=== PATIENT | female | born 1960 ===

== ENCOUNTER 2016-07-31 08:12 | Emergency (ER) | payer OTHER ==
[~2016-07-31] VITALS: Ht 157.5 cm; Wt 72.6 kg
[~2016-07-31 08:12] MED LIST: AFRIN PUMPMIST15 ML NASB; ALBUTEROL1.25 MG/1 INH/SOL; AZITHROMYCIN250 M1 PO; B COMPLEX1 SGL PO; BIOTIN5 MG PO; BUPROPION HCL75 M1 PO; FLEXERIL10 MG PO; IBU800 MG PO; IBUPROFEN600 M1 PO; IMITREX50 MG PO; LEVAQUIN500 M1 PO; MASON NATURAL2000 IU PO; NATURAL IRON65 MG PO; PROVENTIL HFA6.7 GM INH; TESSALON PERLE100 M1 PO; TESSALON PERLE100 MG PO; VENTOLIN HFA18 GM INH; [UNRECOGNIZED DRUG - OTHER] PO
[2016-07-31 08:21] VITALS: BP 110/60
--- NOTE | 2016-07-31 08:36 | ED EYE COMPLAINT ---
History of Present Illness General Chief Complaint: Eye Problems Stated Complaint: LEFT EYE PAIN Source: patient, old records Exam Limitations: no limitations Vital Signs & Intake/Output Vital Signs & Intake/Output Vital Signs Date Time Temp Pulse Resp B/P B/P Pulse O2 O2 Flow FiO2 Mean Ox Delivery Rate 07/31 0821 96.5 74 20 110/60 99 Room Air Allergies Coded Allergies: azithromycin (From ZITHROMAX) (SORES 12/16/15) Reconcile Medications Albuterol Sulfate (Proventil Hfa) 6.7 GM HFA.AER.AD 2 PUF INH Q4 PRN cough/ wheeze Albuterol Sulfate (Ventolin Hfa) 18 GM HFA.AER.AD 2 PUF INH Q4-6 PRN PRN wheeze/cough Benzonatate (Tessalon Perle) 100 MG CAPSULE 1-2 CAP PO TID PRN cough Biotin (Unknown Strength) TAB (Unknown Dose) PO DAILY SUPPLEMENT (Reported) BUPROPION HCL (Bupropion HCl) 75 MG TAB 1 TAB PO DAILY MENTAL HEALTH ( Reported) CHOLECALCIFEROL (VITAMIN D3) (Vitamin D) (Unknown Strength) SGL (Unknown Dose) PO DAILY SUPPLEMENT (Reported) FERROUS SULFATE (IRON) 65 MG TAB 1 TAB PO DAILY SUPPLEMENT (Reported) Naphazoline HCl/Pheniramine (Naphcon-A Eye Drops) 0.025 %-0.3 % DROPS 1 DROP OS Q6 PRN EYE IRRITATION Triage Note: PT TO ED C/O LEFT EYE PAIN AND BURNING SINCE YESTERDAY. PT TO ROOM 7, AWAITING EVAL. Triage Nurses Notes Reviewed? yes HPI: Patient presents for evaluation of constant left eye itching that began gradually 4 days ago. Patient has had similar episodes seasonally due to pollen. Patient's symptoms persist despite the use of Pataday. She is having worsening itching and burning in the eyes at causing her to rub them. Nothing seems to make her symptoms better at this point. Patient is also having clear discharge and crusting of the eye with an associated seasonal rhinorrhea. Patient denies any fever, cold symptoms, visual disturbances or known ill contacts. Past History Travel History Traveled to [place] past 21 day No Medical History Any Pertinent Medical History? 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 No Review of Systems Review of Systems Constitutional: Reports: no symptoms, see HPI. Eyes: Reports: see HPI. Ear: Reports: no symptoms. Nose: Reports: no symptoms. Mouth: Reports: no symptoms. Throat: Reports: no symptoms. Respiratory: Reports: no symptoms. Cardiovascular: Reports: no symptoms. GI: Reports: no symptoms. Genitourinary: Reports: no symptoms. Musculoskeletal: Reports: no symptoms. Skin: Reports: no symptoms. Neurological/Psychological: Reports: no symptoms. Hematologic/Endocrine: Reports: no symptoms. Immunologic/Allergic: Reports: no symptoms. All Other Systems: Reviewed and Negative Physical Exam General Appearance: well developed/nourished, mild distress General Inspection: SEE BELOW Eyelid: normal inspection Conjunctiva/Sclera: injected Cornea: normal inspection EOM: intact Pupil: normal accommodation General Inspection: normal inspection Physical Exam Head: normal appearance Nose: normal inspection Mouth/Throat: normal mouth inspection Neck: normal inspection, supple Cardiovascular/Respiratory: no respiratory distress Neurologic/Psych: awake, alert, normal mood/affect Skin: warm/dry Progress Differential Diagnosis: corneal abrasion, corneal foreign body, conjunctivitis Plan of Care: SEE D/C Departure Departure Disposition: HOME OR SELF CARE Condition: Stable Clinical Impression Primary Impression: Allergic conjunctivitis Qualifiers: Laterality: left Qualified Code: H10.12 - Acute atopic conjunctivitis, left eye Referrals: MARY STERLING APRN (PCP/Family) Additional Instructions: Continue your current medication and add Naphcon as needed. Consider Zyrtec, Claritin or other miuv-hlf-zifsuol allergy medication. Cool compresses as needed. Follow-up with your primary care doctor on Thursday for reevaluation. Return if any concerns or sudden worsening. Thank you for choosing the [facility] for your care. It was a pleasure to serve you today. Tolu Duran M.D. [facility] Departure Forms: Customer Survey General Discharge Information Prescriptions: Current Visit Scripts Naphazoline HCl/Pheniramine (Naphcon-A Eye Drops) 1 DROP OS Q6 PRN EYE IRRITATION #1 VIAL
[2016-07-31] MEDS ORDERED: NAPHCON-A EYE D15 ML OS (08:49)
== END 2016-07-31 08:59 ==
LOC: ERH 08:12
DX: H10.12 Acute atopic conjunctivitis, left eye (principal)

== ENCOUNTER 2016-08-04 16:04 | Emergency (ER) | payer OTHER ==
[~2016-08-04] VITALS: Ht 157.5 cm; Wt 72.6 kg
[~2016-08-04 16:04] MED LIST changes: +NAPHCON-A EYE D15 ML OS
[2016-08-04 16:10] VITALS: BP 125/81
--- NOTE | 2016-08-04 17:30 | ED SKIN/ALLERGY COMPLAINT ---
History of Present Illness General Chief Complaint: Animal/Insect Bite Stated Complaint: SPIDER BITE? Source: patient Exam Limitations: no limitations Vital Signs & Intake/Output Vital Signs & Intake/Output Vital Signs Date Time Temp Pulse Resp B/P B/P Pulse O2 O2 Flow FiO2 Mean Ox Delivery Rate 08/04 1610 97.7 93 16 125/81 97 Room Air Allergies Coded Allergies: azithromycin (From ZITHROMAX) (SORES 12/16/15) Triage Note: PT STATES SHE THINKS SHE WAS BIT BY 2 SPIDERS ABOUT 2 WEEKS AGO. PT REPORTS BRINING HOME EGG BOXES AND STATES SHE SAW TINY BLACK SPIDERS WITH WHITE STRIPES IN THE BOTTOMOF THE CONTAINER. PT GETTING LITTLE BLISTERS ON HER FACE AND NECK. PT C/O FEELING ITCHY AND HAS NUMBNESS IN HER LEFT HAND. Triage Nurses Notes Reviewed? yes Onset: Gradual Duration: constant Timing: recent history Severity: moderate Severity Numbers: 5 Location: face No Modifying Factors: none HPI: Patient is a 56-year-old female who presents emergent with a ten-day history of believing that she was bit by spiders where she was in the process of packing boxes where a box fell and spiders had scattered in her house where she noted a few days later skin irritation to the left side of her face and the neck region where she's been complaining of skin irritation and pruritus where she has only taken [id number] antibiotic cream with no relief of symptoms. Patient was evaluated at [place] emergency room 4 days ago for concerns of left eye allergic conjunctivitis in which she states that she's been feeling better Patient denies any fevers chills sore throat cough or skin erythema discharge or warmth. (RAGHU LEDESMA) Reconcile Medications Bupropion HCl 75 MG TABLET 1 TAB PO DAILY MENTAL HEALTH (Reported) Doxycycline Hyclate 100 MG CAPSULE 1 CAP PO BID DERMATITIS Famotidine (Pepcid) 20 MG TABLET 1 TAB PO BID ALLERGIC REACTION Hydrocortisone 2.5 % CREAM..G. 1 ARCENIO TOP BID INFLAMMATION apply to affected area(s) Methylprednisolone. (Medrol) 4 MG TAB.DS.PK 1 DP PO AD INFLAMMATION 6 on day 1 then reduce by one tablet daily until gone Multivitamin With Minerals (Hair, Skin & Nails) 1 EACH TABLET 1 TAB PO DAILY SUPPLEMENT (Reported) Naphazoline HCl/Pheniramine (Naphcon-A Eye Drops) 0.025 %-0.3 % DROPS 1 DROP OS Q6 PRN EYE IRRITATION (AMADOR CHEO VALENCIA) Past History Travel History Traveled to [place] past 21 day No Medical History Any Pertinent Medical History? 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 No (RAGHU LEDESMA) Review of Systems Review of Systems Constitutional: Reports: no symptoms. EENTM: Reports: no symptoms. Respiratory: Reports: no symptoms. Cardiovascular: Reports: no symptoms. GI: Reports: no symptoms. Genitourinary: Reports: no symptoms. Musculoskeletal: Reports: no symptoms. Skin: Reports: see HPI. Neurological/Psychological: Reports: no symptoms. Hematologic/Endocrine: Reports: no symptoms. Immunologic/Allergic: Reports: no symptoms. All Other Systems: Reviewed and Negative (RAGHU LEDESMA) Physical Exam Physical Exam General Appearance: no apparent distress, alert, comfortable Head: atraumatic Comments: Well-developed well-nourished person in no acute distress HEENT: Normal EENT exam, extraocular motion intact, no nystagmus. Pupils equally round and reactive to light and accommodation. Nose is atraumatic. External auditory canal and Tympanic membranes clear. Pharynx normal. No swelling or edema. Neck: Supple, no lymphadenopathy, normal range of motion without pain or tenderness Back: Nontender, no CVA tenderness. Cardiovascular: Regular rate and rhythms no murmurs rubs or gallops, normal JVP Respiratory: Chest nontender. No respiratory distress.breath sounds clear to auscultation bilaterally Abdomen: Soft, nontender nondistended, no appreciable organomegaly. Normal bowel sounds. No ascites Extremity: No edema, no calf tenderness to palpation, normal and equal pulses. Neuro: Alert oriented x3, motor sensory normal, Psych: Mood and affect is normal, memory and judgment is normal. Diagram Head: 1) Mild swelling noted no erythema no warmth minimal 1 mm dark circular papules noted X #2 2) Mild swelling and X#1, 3 mm circular dark papule noted (RAGHU LEDESMA) Progress Differential Diagnosis: abscess/cellulitis, allergic reaction, anaphylaxis, angioedema, contact dermatitis, drug reaction, erythema multiforme, lyme disease , meningitis/sepsis, piyriasis rosea, urticaria Plan of Care: No signs of cellulitis or abscess at this time patient does not complain of systemic symptoms of infection. Patient will be treated for concerns of dermatitis and nonspecific rash (RAGHU LEDESMA) Departure Departure Disposition: HOME OR SELF CARE Condition: Stable Clinical Impression Primary Impression: Dermatitis Referrals: MARY STERLING APRN (PCP/Family) Additional Instructions: As discussed in the prescription and doxycycline as directed for the full course , begin the prescription of Medrol Dosepak, HYDROCORTISONE cream and Pepcid as directed for symptoms. Begin at night Benadryl for your itching sensation. If no better in 4 days follow-up with primary care doctor. If symptoms worsen return to emergency room. Prescription is waiting at [facility] Departure Forms: Customer Survey General Discharge Information Prescriptions: Current Visit Scripts Doxycycline Hyclate 1 CAP PO BID #14 CAP Methylprednisolone. (Medrol) 1 DP PO AD #1 DP 6 on day 1 then reduce by one tablet daily until gone Hydrocortisone 1 ARCENIO TOP BID #60 GM apply to affected area(s) Famotidine (Pepcid) 1 TAB PO BID #8 TAB (RAGHU LEDESMA) PA/RAW SCALES OPERATOR Co-Sign Statement Statement: ED Attending supervision documentation- [] I saw and evaluated the patient. I have also reviewed all the pertinent lab results and diagnostic results. I agree with the findings and the plan of care as documented in the PA's/RAW SCALES OPERATOR's documentation. [x] I have reviewed the ED Record and agree with the PA's/RAW SCALES OPERATOR's documentation. [] Additions or exceptions (if any) to the PAs/RAW SCALES OPERATOR's note and plan are summarized below: [] (CHEO ENGLISH DO
[2016-08-04] MEDS ORDERED: MEDROL4 M2 PO (17:43)
[2016-08-04] MEDS ORDERED: DOXYCYCLINE HY100 M2 PO (17:43)
[2016-08-04] MEDS ORDERED: PEPCID20 M1 PO (17:43)
[2016-08-04] MEDS ORDERED: HYDROCORTISO453.6 G2 TOP (17:43)
[2016-08-04] MEDS ORDERED: HAIR, SKIN & N1 EACH PO (17:52)
== END 2016-08-04 18:00 ==
LOC: ERH 16:04
DX: L30.9 Dermatitis, unspecified (principal)

== ENCOUNTER 2016-08-15 22:42 | Emergency (ER) | payer OTHER ==
[~2016-08-15] VITALS: Ht 157.5 cm; Wt 63.5 kg
[~2016-08-15 22:42] MED LIST changes: +DOXYCYCLINE HY100 M2 PO; +HAIR, SKIN & N1 EACH PO; +HYDROCORTISO453.6 G2 TOP; +MEDROL4 M2 PO; +PEPCID20 M1 PO
[2016-08-15 22:46] VITALS: BP 115/79
--- NOTE | 2016-08-15 23:49 | ED SKIN/ALLERGY COMPLAINT ---
History of Present Illness General Chief Complaint: Animal/Insect Bite Stated Complaint: SPIDER BITE TO NECK, RE-EVAL SEEN OVER 1 WEEK AGO Source: patient Exam Limitations: no limitations Vital Signs & Intake/Output Vital Signs & Intake/Output Vital Signs Date Time Temp Pulse Resp B/P B/P Pulse O2 O2 Flow FiO2 Mean Ox Delivery Rate 08/15 2246 97.1 62 16 115/79 98 Room Air ED Intake and Output 08/16 0000 08/15 1200 Intake Total Output Total Balance Patient 140 lb Weight Weight Reported by Patient Measurement Method Allergies Coded Allergies: azithromycin (From ZITHROMAX) (SORES 12/16/15) diphenhydramine (From BENADRYL) ("DONT LIKE THE EFFECTS" 08/15/16) Reconcile Medications Bupropion HCl 75 MG TABLET 1 TAB PO DAILY MENTAL HEALTH (Reported) Doxycycline Hyclate 100 MG CAPSULE 1 CAP PO BID DERMATITIS Famotidine (Pepcid) 20 MG TABLET 1 TAB PO BID ALLERGIC REACTION Famotidine (Pepcid) 20 MG TABLET 1 TAB PO DAILY ALLERGIC REACTION Hydrocortisone 2.5 % CREAM..G. 1 ARCENIO TOP BID INFLAMMATION apply to affected area(s) Methylprednisolone. (Medrol) 4 MG TAB.DS.PK 1 DP PO AD INFLAMMATION 6 on day 1 then reduce by one tablet daily until gone Methylprednisolone. (Medrol) 4 MG TAB.DS.PK 1 DP PO AD ALLERGIC REACTION 6 on day 1 then reduce by one tablet daily until gone Multivitamin With Minerals (Hair, Skin & Nails) 1 EACH TABLET 1 TAB PO DAILY SUPPLEMENT (Reported) Naphazoline HCl/Pheniramine (Naphcon-A Eye Drops) 0.025 %-0.3 % DROPS 1 DROP OS Q6 PRN EYE IRRITATION Olopatadine HCl (Pataday) 0.2 % DROPS 1 GTT OPH DAILY ALLERGIES Triage Note: PT TO ED FOR "WORSENING ITCHING AFTER SPIDER BITE 1 WEEK AGO" WAS SEEN FOR BITE INITIALLY 1 WEEK AGO AND PRESCRIBED, PREDNISONE, DOXYCYCLINE, EYE DROPS "AND ONE OTHER MEDICATOIN" ITCHING IMPROVED BUT PT REPORTS WHEN PREDNISONE RX FINISHED ITCHING RETURNED. Triage Nurses Notes Reviewed? yes Onset: Gradual Duration: constant Severity: moderate Severity Numbers: 5 Location: torso Possible Factors: no cause identified HPI: Patient is a 56-year-old female who presents emergency room stating that she has exacerbation last 3-4 days of right-sided neck skin irritation and burning sensation and significant itching. Patient was evaluated and treated by me approximately 2 weeks ago for similar complaints in which she thought she was bitten by spiders and when she was administered prednisone doxycycline and hydrocortisone cream with complete resolution of symptoms. Patient again denies any ideology or specific allergens Denies any shortness of breath, swelling lip swelling difficulty breathing or swallowing. Patient still has been applying the hydrocortisone cream (RAGHU LEDESMA) Past History Travel History Traveled to [place] past 21 day No Medical History Any Pertinent Medical History? 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 No (RAGHU LEDESMA) Review of Systems Review of Systems Constitutional: Reports: no symptoms. EENTM: Reports: no symptoms. Respiratory: Reports: no symptoms. Cardiovascular: Reports: no symptoms. GI: Reports: no symptoms. Genitourinary: Reports: no symptoms. Musculoskeletal: Reports: no symptoms. Skin: Reports: see HPI, rash. Neurological/Psychological: Reports: no symptoms. Hematologic/Endocrine: Reports: no symptoms. Immunologic/Allergic: Reports: no symptoms. All Other Systems: Reviewed and Negative (RAGHU LEDESMA) Physical Exam Physical Exam General Appearance: no apparent distress, alert, comfortable Comments: Well-developed well-nourished person in no acute distress HEENT: , extraocular motion intact, no nystagmus. Pupils equally round and reactive to light and accommodation. Nose is atraumatic. External auditory canal and Tympanic membranes clear. Pharynx normal. No swelling or edema. Neck: Supple, no lymphadenopathy, normal range of motion without pain or tenderness Back: Nontender, no CVA tenderness Cardiovascular: Regular rate and rhythms no murmurs rubs or gallops, normal JVP Respiratory: Chest nontender. No respiratory distress.breath sounds clear to auscultation bilaterally Abdomen: Soft, nontender nondistended, no appreciable organomegaly. Normal bowel sounds. No ascites Extremity: No edema, no calf tenderness to palpation, normal and equal pulses. Neuro: Alert oriented x3, Psych: Mood and affect is normal, memory and judgment is normal. Diagram Head: 1) Noted macular papular erythematous rash (RAGHU LEDESMA) Progress Differential Diagnosis: abscess/cellulitis, allergic reaction, anaphylaxis, angioedema, contact dermatitis, drug reaction, urticaria Plan of Care: Current Medications Sig/Roman Start time Last Medication Dose Stop Time Status Admin Prednisone 60 MG ONCE ONE 08/16 14 UNVr 08/16 08/16 0016 0017 Patient on examination she has no signs of anaphylaxis or angioedema Patient does have right lateral anterior neck rash most representing contact dermatitis. Patient denies any specific allergen however. Patient was strongly advised to begin histamine and anti-inflammatories and to follow-up with dermatology if symptoms still continue. (RAGHU LEDESMA) Departure Departure Disposition: HOME OR SELF CARE Condition: Stable Clinical Impression Primary Impression: Contact dermatitis Referrals: MARY STERLING APRN (PCP/Family) Additional Instructions: As discussed begin the prescription of Medrol Dosepak for inflammation tomorrow as you receive this medication the emergency room today. Begin the prescription of Pepcid for your symptoms. Continue your previously prescribed hydrocortisone cream as directed. If symptoms worsen return to the emergency room. Prescriptions waiting at [facility] pharmacy. If no better in one week follow-up with your insurance website to establish a emt for further evaluation treatment. Departure Forms: Customer Survey General Discharge Information Prescriptions: Current Visit Scripts Methylprednisolone. (Medrol) 1 DP PO AD #1 DP 6 on day 1 then reduce by one tablet daily until gone Famotidine (Pepcid) 1 TAB PO DAILY #4 TAB Olopatadine HCl (Pataday) 1 GTT OPH DAILY #1 BOT (RAGHU LEDESMA) PA/DIRECTOR OF RESTAURANT Co-Sign Statement Statement: ED Attending supervision documentation- [] I saw and evaluated the patient. I have also reviewed all the pertinent lab results and diagnostic results. I agree with the findings and the plan of care as documented in the PA's/DIRECTOR OF RESTAURANT's documentation. [x] I have reviewed the ED Record and agree with the PA's/DIRECTOR OF RESTAURANT's documentation. [] Additions or exceptions (if any) to the PAs/DIRECTOR OF RESTAURANT's note and plan are summarized below: [] (MICHELLE ROCHA,CORNELIO Powell)
[2016-08-16] MEDS ORDERED: PEPCID20 M1 PO (00:02)
[2016-08-16] MEDS ORDERED: MEDROL4 M2 PO (00:02)
[2016-08-16] MEDS ORDERED: PATADAY2.5 ML OPH (00:08)
== END 2016-08-16 00:21 ==
LOC: ERH 22:42
DX: L25.9 Unspecified contact dermatitis, unspecified cause (principal)